=== PATIENT | male | born 1940 | race Caucasian/White ===

== ENCOUNTER 2018-02-21 08:19 | Emergency (ER) | payer MEDICARE ==
--- NOTE | 2018-02-21 09:48 | CT ---
CT HEAD: Indication: Post-traumatic pain. FINDINGS: There is no evidence of acute intracranial hemorrhage, mass effect, midline shift or ventriculomegaly . IMPRESSION: No acute intracranial abnormality. POS: [facility]
--- NOTE | 2018-02-21 09:51 | CT ---
CT CERVICAL SPINE WITHOUT CONTRAST: History: Trauma. Fall. Comparison: None. FINDINGS: The occipital condyles are intact. The odontoid process is intact. Severe facet arthrosis throughout the cervical spine from C2 through C5. There is no acute fracture or malalignment. Multilevel focal b ridging anterior osteophytes. The mastoids are clear. Multifocal hypodensities are present at both lo bes of the thyroid. Paraspinal musculature is symmetric. No cervical adenopathy. IMPRESSION: No acute fracture or malalignment of the cervical spine. POS: [facility]
== END 2018-02-21 10:20 | disposition home or self-care (01) ==
LOC: ERS 08:19
DX: T14.8XXA Other injury of unspecified body region, initial encounter (principal); E03.9 Hypothyroidism, unspecified; E78.5 Hyperlipidemia, unspecified; I10 Essential (primary) hypertension; G30.9 Alzheimer's disease, unspecified; F02.80 Dementia in other diseases classified elsewhere, unspecified severity, without behavioral disturbance, psychotic disturbance, mood disturbance, and anxiety; G20 Parkinson's disease; F32.9 Major depressive disorder, single episode, unspecified; Z79.899 Other long term (current) drug therapy; Z79.82 Long term (current) use of aspirin; W19.XXXA Unspecified fall, initial encounter
CPT/HCPCS: 70450; 72125

== ENCOUNTER 2018-02-23 03:25 | Emergency (ER) | payer MEDICARE ==
[2018-02-23] MEDS ORDERED: Adacel (T-DAP) 0.5 ML SYRINGE ONE (04:12)
[2018-02-23] MEDS ORDERED: Lidocaine 1% (PF) 30 ML VIAL ONE (04:12)
--- NOTE | 2018-02-23 08:27 | CT ---
PRELIMINARY REPORT/[facility]/EMERGENTY AFTER-HOURS PROCEDURE CT Cervical Spine Without Contrast EXAM DATE/TIME: 02/23/2018 3:47 AM CLINICAL HISTORY: 78 years old, male; Injury; Fall; Initial encounter; Blunt trauma without LOC; Forehead laceration; p resents to ED via EMS from [facility] due to head laceration S/P rolling out of bed around 02:30 . a&o x1 at baseline. Ca told ems they saw PT walk out of his room with bld dripping from his head lac. PT denies head, neck, or back pain TECHNIQUE: Axial computed tomography images of the cervical spine without intravenous contrast. COMPARISON: No relevant prior studies available. FINDINGS: Vertebrae: No acute fracture. No subluxation. Discs/Spinal canal/Neural foramina: Multilevel cervical degenerative / spondylitic changes with multi level neural foraminal narrowing. Soft tissues: Unremarkable. Lungs: Lung apices are normal. IMPRESSION: No acute fracture or subluxation. Thank you for allowing us to participate in the care of your patient. Dictated and Authenticated by: Mikey Johnson MD 02/23/2018 4:32 AM Central Time ([place] & [place]) FINAL REPORT EMERGENT AFTER HOURS CT CERVICAL SPINE WITHOUT CONTRAST: FINDINGS/IMPRESSION: I agree with the findings and impression given in the preliminary report per [facility] physician. There are degenerative changes of the cervical spine without acute osseous abnormality. POS: [facility]
--- NOTE | 2018-02-23 08:28 | CT ---
PRELIMINARY REPORT/[facility]/EMERGENTY AFTER-HOURS PROCEDURE CT Head Without Contrast EXAM DATE/TIME: 02/23/2018 3:47 AM CLINICAL HISTORY: 78 years old, male; Injury; Fall; Initial encounter; Blunt trauma without LOC; Forehead laceration; p resents to ED via EMS from [facility] due to head laceration S/P rolling out of bed around 02:30 . a&o x1 at baseline. Nh told ems they saw PT walk out of his room with bld dripping from his head lac. PT denies head, neck, or back pain TECHNIQUE: Axial computed tomography images of the head/brain without contrast. COMPARISON: No relevant prior studies available. FINDINGS: Brain: A few scattered small areas of decreased density in the periventricular white matter which are likely secondary to chronic ischemia from microvascular change. Diffuse cerebral atrophy. No mass ef fect or midline shift. No extra-axial fluid collection. Ventricles: Ventricular prominence in this patient with diffuse cerebral atrophy. Bones/joints: No fracture. Sinuses: Partial ethmoid sinusitis. Mastoid air cells: No mastoiditis. Soft tissues: Left frontal scalp soft tissue swelling. IMPRESSION: 1. No fracture. 2. Left frontal scalp soft tissue swelling. 3. No acute intracranial findings. 4. Diffuse cerebral atrophy and age-related periventricular white matter changes. Thank you for allowing us to participate in the care of your patient. Dictated and Authenticated by: Mikey Johnson MD 02/23/2018 4:27 AM Central Time ([place] & [place]) FINAL REPORT EMERGENT AFTER HOURS CT OF THE BRAIN WITHOUT CONTRAST: FINDINGS/IMPRESSION: I agree with the findings and impression given in the preliminary report per [facility] physician. No lili dence of acute intracranial abnormality. POS: [facility]
== END 2018-02-23 06:20 | disposition home or self-care (01) ==
LOC: ERS 03:25
DX: S01.81XA Laceration without foreign body of other part of head, initial encounter (principal); E03.9 Hypothyroidism, unspecified; E78.5 Hyperlipidemia, unspecified; I10 Essential (primary) hypertension; G30.9 Alzheimer's disease, unspecified; F02.80 Dementia in other diseases classified elsewhere, unspecified severity, without behavioral disturbance, psychotic disturbance, mood disturbance, and anxiety; G20 Parkinson's disease; F32.9 Major depressive disorder, single episode, unspecified; Z79.899 Other long term (current) drug therapy; Z79.82 Long term (current) use of aspirin; W06.XXXA Fall from bed, initial encounter
CPT/HCPCS: 12013; 70450; 72125; 90471; 90715; J2001

== ENCOUNTER 2018-03-03 06:01 | Emergency (ER) | payer MEDICARE ==
[2018-03-03] MEDS ORDERED: Oxymetazoline HCl 0.05% ( 15 ML ) ONE (06:11)
[2018-03-03 06:35] LABS: #Eosinphils 0.2 thou/uL (0.0-0.7); #Monocytes 0.4 thou/uL (0.11-0.59); #Neutrophils 3.6 thou/uL (1.40-6.50); %Basophils 0.2 % (0.0-1.0); %Eosinophils 2.9 % (0.0-10.0); %Monocytes 8.5 % (0.0-10.0); %Neutrophils 68.5 % (42.0-75.0); Hemoglobin 11.6 g/dL (14.0-18.0); Mean Corpuscular HGB CONC 31.9 g/dL (32.0-36.0); Mean Corpuscular Hemoglobin 27.5 pg (27.0-31.0); Mean Corpuscular Volume 86.2 fL (78.0-98.0); Mean Platelet Volume 7.2 fL (7.4-10.4); Platelet Count 328 thou/uL (130-400); RBC Distribution Width 14.2 % (11.5-14.5); Red Blood Cell (RBC) Count 4.21 mill/uL (4.70-6.10); White Blood Cell (WBC) Count 5.2 thou/uL (4.8-10.8)
[2018-03-03 06:37] LABS: INR-International Normal Ratio 1.2; PTT 34.6 SEC (22.9-36.1); Prothrombin Time 14.9 SEC (12.0-14.7)
[2018-03-03 06:54] LABS: ALT (SGPT) 10 U/L (8-55); AST (SGOT) 18 U/L (5-34); Albumin 3.2 g/dL (3.4-4.8); Alkaline Phosphatase 117 U/L (40-150); Anion Gap 12 mmol/L (10-20); BUN (Urea Nitrogen) 12 mg/dL (8.4-25.7); Bilirubin, Total 0.6 mg/dL (0.2-1.2); Calc. Creatinine Clearance 0 mL/min (70-130); Calcium 8.5 mg/dL (7.8-10.44); Carbon Dioxide 26 mmol/L (23-31); Chloride 107 mmol/L (98-107); Estimated GFR-MDRD Greater than 90; Globulin 3.3 g/dL (2.4-3.5); Glucose 97 mg/dL (83-110); Potassium 3.8 mmol/L (3.5-5.1); Protein, Total 6.5 g/dL (5.8-8.1); Sodium 141 mmol/L (136-145)
== END 2018-03-03 08:01 | disposition home or self-care (01) ==
LOC: ERS 06:01
DX: R04.0 Epistaxis (principal); E03.9 Hypothyroidism, unspecified; E78.5 Hyperlipidemia, unspecified; I10 Essential (primary) hypertension; G30.9 Alzheimer's disease, unspecified; F02.80 Dementia in other diseases classified elsewhere, unspecified severity, without behavioral disturbance, psychotic disturbance, mood disturbance, and anxiety; G20 Parkinson's disease; F32.9 Major depressive disorder, single episode, unspecified; Z79.899 Other long term (current) drug therapy; Z79.82 Long term (current) use of aspirin
CPT/HCPCS: 36415; 80053; 85025; 85610; 85730; 99284

== ENCOUNTER 2018-03-29 16:10 | Emergency (ER) | payer MEDICARE ==
--- NOTE | 2018-03-29 18:43 | CT ---
CT OF BRAIN PERFORMED WITHOUT CONTRAST ENHANCEMENT: 03/29/18 HISTORY: Head injury status post fall. COMPARISON: 02/23/18 study. Some generalized ventricular and sulcal prominence. There is no signs of intracerebral hemorrhage or extra-axial fluid collections. The mastoid air cells and visualized sinuses are clear. IMPRESSION: No acute intracranial abnormalities. POS: [facility]
== END 2018-03-29 18:05 ==
LOC: ERS 16:10
DX: S30.811A Abrasion of abdominal wall, initial encounter (principal); E03.9 Hypothyroidism, unspecified; E78.5 Hyperlipidemia, unspecified; I10 Essential (primary) hypertension; G30.9 Alzheimer's disease, unspecified; F02.80 Dementia in other diseases classified elsewhere, unspecified severity, without behavioral disturbance, psychotic disturbance, mood disturbance, and anxiety; G20 Parkinson's disease; I48.91 Unspecified atrial fibrillation; G47.30 Sleep apnea, unspecified; F32.9 Major depressive disorder, single episode, unspecified; Z79.899 Other long term (current) drug therapy; Z79.82 Long term (current) use of aspirin; W19.XXXA Unspecified fall, initial encounter
CPT/HCPCS: 70450

== ENCOUNTER 2018-03-31 17:31 | Emergency (ER) | payer MEDICARE ==
--- NOTE | 2018-03-31 18:19 | RAD ---
PORTABLE CHEST: 03/31/18 at 6:02 p.m. HISTORY: Fall. Chest pain. FINDINGS: The heart size is normal. The aorta is tortuous. The lungs are expanded without lobar consolidation, pneumothoraces, or pleural effusions. IMPRESSION: No acute process. POS: [facility]
[2018-03-31 18:34] LABS: #Eosinphils 0.1 thou/uL (0.0-0.7); #Lymphocytes 1.2 thou/uL (1.20-3.40); #Monocytes 0.7 thou/uL (0.11-0.59); #Neutrophils 4.2 thou/uL (1.40-6.50); %Basophils 0.1 % (0.0-1.0); %Eosinophils 2.4 % (0.0-10.0); %Lymphocytes 19.6 % (21.0-51.0); %Monocytes 10.6 % (0.0-10.0); %Neutrophils 67.3 % (42.0-75.0); Hemoglobin 12.5 g/dL (14.0-18.0); Mean Corpuscular HGB CONC 31.4 g/dL (32.0-36.0); Mean Corpuscular Hemoglobin 27.9 pg (27.0-31.0); Mean Platelet Volume 7.5 fL (7.4-10.4); Platelet Count 310 thou/uL (130-400); RBC Distribution Width 15.3 % (11.5-14.5); Red Blood Cell (RBC) Count 4.49 mill/uL (4.70-6.10); White Blood Cell (WBC) Count 6.2 thou/uL (4.8-10.8)
[2018-03-31 20:24] LABS: ALT (SGPT) 7 U/L (8-55); AST (SGOT) 21 U/L (5-34); Albumin 3.5 g/dL (3.4-4.8); Alkaline Phosphatase 128 U/L (40-150); Anion Gap 15 mmol/L (10-20); BUN (Urea Nitrogen) 12 mg/dL (8.4-25.7); Bilirubin, Total 0.5 mg/dL (0.2-1.2); Calc. Creatinine Clearance 0 mL/min (70-130); Calcium 8.8 mg/dL (7.8-10.44); Carbon Dioxide 23 mmol/L (23-31); Chloride 106 mmol/L (98-107); Estimated GFR-MDRD 80; Globulin 3.4 g/dL (2.4-3.5); Glucose 80 mg/dL (83-110); Magnesium 2.1 mg/dL (1.6-2.6); Potassium 3.9 mmol/L (3.5-5.1); Protein, Total 6.9 g/dL (5.8-8.1); Sodium 140 mmol/L (136-145)
--- NOTE | 2018-03-31 20:31 | CT ---
CT BRAIN WITHOUT CONTRAST 03/31/18 HISTORY: Multiple unwitnessed falls, dementia. FINDINGS: Comparison is made with exam of 03/31/18. No evidence of infarct, hemorrhage, midline shift or abnormal extra-axial fluid collections are seen. The ventricular size is appropriate and the basilar cisterns are patent. The bony calvarium is intac t. The visualized paranasal sinuses and mastoid air cells are well aerated. IMPRESSION: No CT evidence of acute intracranial process. POS: [facility]
[2018-03-31 21:06] LABS: Bilirubin Small (Negative); Blood, Urine Negative (Negative); Clarity CLEAR (Clear); Glucose, Urine (Dipstick) Negative (Negative); Leukocyte Small (Negative); Nitrite Negative (Negative); Protein, Urine (Dipstick) 30 mg/dL (Neg-Trace); Specific Gravity, Urine 1.028 (1.002-1.036)
[2018-03-31 21:08] LABS: Bacteria/HPF None Seen HPF (None Seen); Hyaline Casts/LPF 0-3 HYALINE CAST LPF (0-3 Hyaline); Pathc Cast-AUWi Flag 0.14 (0-2.49); RBC/HPF 0-3 HPF (0-3); Squamous Epithelial None Seen HPF (0-3); WBC/HPF None Seen HPF (0-3)
== END 2018-03-31 22:01 | disposition home or self-care (01) ==
LOC: ERS 17:31
DX: Z04.3 Encounter for examination and observation following other accident (principal); F32.9 Major depressive disorder, single episode, unspecified; E03.9 Hypothyroidism, unspecified; E78.5 Hyperlipidemia, unspecified; I10 Essential (primary) hypertension; G30.9 Alzheimer's disease, unspecified; F02.80 Dementia in other diseases classified elsewhere, unspecified severity, without behavioral disturbance, psychotic disturbance, mood disturbance, and anxiety; G20 Parkinson's disease; I48.91 Unspecified atrial fibrillation
CPT/HCPCS: 36415; 51701; 70450; 71045; 80053; 81003; 81015; 83735; 84443; 84484; 85025; 93005

== ENCOUNTER 2018-04-24 11:18 | Emergency (ER) | payer MEDICARE ==
[2018-04-24 12:25] LABS: #Eosinphils 0.1 thou/uL (0.0-0.7); #Lymphocytes 1.4 thou/uL (1.20-3.40); #Monocytes 0.4 thou/uL (0.11-0.59); #Neutrophils 3.2 thou/uL (1.40-6.50); %Basophils 0.1 % (0.0-1.0); %Eosinophils 1.4 % (0.0-10.0); %Lymphocytes 27.7 % (21.0-51.0); %Monocytes 7.3 % (0.0-10.0); %Neutrophils 63.6 % (42.0-75.0); Hemoglobin 12.2 g/dL (14.0-18.0); Mean Corpuscular HGB CONC 30.4 g/dL (32.0-36.0); Mean Corpuscular Hemoglobin 26.9 pg (27.0-31.0); Mean Corpuscular Volume 88.6 fL (78.0-98.0); Mean Platelet Volume 7.4 fL (7.4-10.4); Platelet Count 321 thou/uL (130-400); RBC Distribution Width 14.9 % (11.5-14.5); Red Blood Cell (RBC) Count 4.54 mill/uL (4.70-6.10); White Blood Cell (WBC) Count 5.1 thou/uL (4.8-10.8)
[2018-04-24 13:00] LABS: ALT (SGPT) Less than 7 U/L (8-55); AST (SGOT) 17 U/L (5-34); Acetaminophen Less than 6.0 mcg/mL (10.0-30.0); Albumin 3.6 g/dL (3.4-4.8); Alcohol Less than 10 mg/dL (Less than 10); Alkaline Phosphatase 118 U/L (40-150); Anion Gap 11 mmol/L (10-20); BUN (Urea Nitrogen) 15 mg/dL (8.4-25.7); Bilirubin, Total 0.4 mg/dL (0.2-1.2); Calc. Creatinine Clearance 0 mL/min (70-130); Calcium 9.1 mg/dL (7.8-10.44); Carbon Dioxide 27 mmol/L (23-31); Chloride 105 mmol/L (98-107); Estimated GFR-MDRD 82; Globulin 2.9 g/dL (2.4-3.5); Glucose 95 mg/dL (83-110); Potassium 3.8 mmol/L (3.5-5.1); Protein, Total 6.5 g/dL (5.8-8.1); Salicylate Less than 8.0 mg/dL (15.0-30.0); Sodium 139 mmol/L (136-145)
--- NOTE | 2018-04-24 14:06 | RAD ---
CHEST 1 VIEW: DATE: 04/24/18 Indication: History of Parkinson's disease and altered mental status. FINDINGS: There is scattered mild scarring within the lungs. There is moderate cardiomegaly. No confluent air s pace opacity or pleural effusion is noted. Examination is not appreciably changed from the comparison dated 03/31/18. IMPRESSION: No acute abnormality. POS: [facility]
--- NOTE | 2018-04-24 14:17 | CT ---
CT BRAIN WITHOUT CONTRAST: Date: 04/24/18 HISTORY: Delusional activity, Parkinson's disease. Altered mental status. FINDINGS: Comparison made with exam of 03/31/18. No evidence of infarct, hemorrhage, midline shift, or abnormal extra-axial fluid collections are seen . The ventricular size is appropriate and the basilar cisterns are patent. The bony calvarium is inta ct. The visualized paranasal sinuses and mastoid air cells are well aerated. IMPRESSION: No CT evidence of acute intracranial process. POS: [facility]
[2018-04-24 15:37] LABS: Bilirubin Negative (Negative); Blood, Urine Negative (Negative); Clarity CLEAR (Clear); Glucose, Urine (Dipstick) Negative (Negative); Leukocyte Negative (Negative); Nitrite Negative (Negative); Protein, Urine (Dipstick) Trace mg/dL (Neg-Trace); Specific Gravity, Urine 1.023 (1.002-1.036)
[2018-04-24 15:38] LABS: Amphetamine Not Detected (NotDetected); Barbiturates Screen Not Detected (NotDetected); Benzodiazepine Screen Detected (NotDetected); Cocaine Metabolite Screen Not Detected (NotDetected); Medtox Control Line Valid? VALID (VALID); Medtox Reader # READER 4; Methadone Not Detected (NotDetected); Methamphetamine Not Detected (NotDetected); Opiate Screen Not Detected (NotDetected); Oxycodone Screen Not Detected (NotDetected); Phencyclidine (PCP) Not Detected (NotDetected); THC/Cannabinoid Screen Not Detected (NotDetected); Tricyclic Screen Not Detected (NotDetected)
--- NOTE | 2018-04-29 17:13 | EKG ---
Test Reason : AMS Blood Pressure : / mmHG Vent. Rate : 073 BPM Atrial Rate : 073 BPM P-R Int : 148 ms QRS Dur : 110 ms QT Int : 404 ms P-R-T Axes : 038 009 231 degrees QTc Int : 445 ms Normal sinus rhythm Nonspecific ST and T wave abnormality Abnormal ECG Confirmed by MAN WEBB, DAISY ([id number]), supervising editor news reel RAN MOELLER ([id number]) on 04/29/2018 5:12:47 PM Referred By: MAN Confirmed By:DAISY CONWAY MD
== END 2018-04-24 15:38 | disposition home or self-care (01) ==
LOC: ERS 11:18
DX: G20 Parkinson's disease (principal); F02.80 Dementia in other diseases classified elsewhere, unspecified severity, without behavioral disturbance, psychotic disturbance, mood disturbance, and anxiety; R41.0 Disorientation, unspecified; E03.9 Hypothyroidism, unspecified; E78.5 Hyperlipidemia, unspecified; I10 Essential (primary) hypertension; I48.91 Unspecified atrial fibrillation; G47.30 Sleep apnea, unspecified; F32.9 Major depressive disorder, single episode, unspecified; Z79.899 Other long term (current) drug therapy; Z79.82 Long term (current) use of aspirin
CPT/HCPCS: 36415; 70450; 71045; 80053; 80306; 80307; 81003; 82140; 84484; 85025; 93005

== ENCOUNTER 2018-04-26 15:26 | Emergency (ER) | payer MEDICARE | END 2018-04-26 18:31 | LOC: ERS 15:26 | DX: G31.83 Neurocognitive disorder with Lewy bodies (principal); F02.80 Dementia in other diseases classified elsewhere, unspecified severity, without behavioral disturbance, psychotic disturbance, mood disturbance, and anxiety; E03.9 Hypothyroidism, unspecified; E78.5 Hyperlipidemia, unspecified; I10 Essential (primary) hypertension; I48.91 Unspecified atrial fibrillation; G47.30 Sleep apnea, unspecified; F32.9 Major depressive disorder, single episode, unspecified; Z79.891 Long term (current) use of opiate analgesic; Z79.899 Other long term (current) drug therapy; Z79.82 Long term (current) use of aspirin | CPT/HCPCS: 99284 ==

== ENCOUNTER 2018-04-28 18:09 | Emergency (ER) | payer MEDICARE ==
--- NOTE | 2018-04-28 18:53 | CT ---
CT BRAIN 04/28/18 Trauma with fall. Noncontrast enhanced CT images of the brain obtained. The brain is unremarkable. No evidence of intracranial masses, hemorrhages, strokes, or contusions se en. Ventricles are of normal size. The calvarium is unremarkable. IMPRESSION: Normal CT brain. POS: [facility]
--- NOTE | 2018-04-28 19:03 | CT ---
CT CERVICAL SPINE 04/28/18 HISTORY: Fall with head trauma. The patient is denying pain. Axial images are obtained with coronal and sagittal reconstructions. CT images demonstrate multilevel changes of spondylosis involving the facets of C3-4, C4-5 and C5-6. There is also facet degenerative changes seen in the left C7-T1. No evidence of acute cervical spine fracture seen. No evidence of compression fractures seen. The odo ntoid is unremarkable. Bilateral distal common and proximal ICA carotid calcification seen. There is also some heterogeneity noted in the upper pole of the right thyroid lobe. IMPRESSION: Multilevel changes of spondylosis. No evidence of acute cervical spine lesion. POS: [facility]
== END 2018-04-28 20:10 ==
LOC: ERS 18:09
DX: S05.12XA Contusion of eyeball and orbital tissues, left eye, initial encounter (principal); E03.9 Hypothyroidism, unspecified; E78.5 Hyperlipidemia, unspecified; I10 Essential (primary) hypertension; G30.9 Alzheimer's disease, unspecified; F02.80 Dementia in other diseases classified elsewhere, unspecified severity, without behavioral disturbance, psychotic disturbance, mood disturbance, and anxiety; G20 Parkinson's disease; I48.91 Unspecified atrial fibrillation; G47.30 Sleep apnea, unspecified; F32.9 Major depressive disorder, single episode, unspecified; Z79.899 Other long term (current) drug therapy; Z79.82 Long term (current) use of aspirin; W19.XXXA Unspecified fall, initial encounter
CPT/HCPCS: 70450; 72125

== ENCOUNTER 2018-05-25 17:08 | Emergency (ER) | payer MEDICARE ==
--- NOTE | 2018-05-25 19:16 | CT ---
CT BRAIN WITHOUT CONTRAST: 05/25/18 HISTORY: Fall, head trauma, FINDINGS: Comparison is made with exam of 04/28/18. No evidence of infarct, hemorrhage, midline shift or abnormal extra-axial fluid collections are seen. The ventricular size is stable and the basilar cisterns patent. The bony calvarium is intact. The vi sualized paranasal sinuses and mastoid air cells are well aerated. IMPRESSION: No CT evidence of acute intracranial process. POS: [facility]
--- NOTE | 2018-05-25 19:30 | CT ---
CT CERVICAL SPINE WITH CORONAL AND SAGITTAL REFORMATIONS 05/25/18 HISTORY: Fall. FINDINGS/IMPRESSION: Multilevel degenerative changes are present in the cervical spine. On one single reformatted sagitta l image (image 33, series 802), there is a lucency involving the posterosuperior aspect of the C7 karyn tebral body which could represent a fracture. No significant retropulsion is however seen. There is minimal anterolisthesis of C5 over C6 vertebral bodies. No facet malalignment is identified. Discussed over the telephone with ER physician, Dr. Beverley Bains at 7:07 p.m. POS: [facility]
--- NOTE | 2018-05-25 19:38 | RAD ---
AP PELVIS: 05/25/18 HISTORY: Fall. FINDINGS/IMPRESSION: There are degenerative changes in the lower lumbar spine and the hip joints. No acute fracture or dis location is identified. POS: [facility]
--- NOTE | 2018-05-25 19:38 | RAD ---
RIGHT HIP TWO VIEWS: 05/25/18 HISTORY: Fall. Right hip pain. FINDINGS/IMPRESSION: Degenerative changes are present. No acute fracture or dislocation is identified. POS: [facility]
[2018-05-25] MEDS ORDERED: Lidocaine 1% w/Epinephrine 1:100K 20 ML VIAL ONE (20:28)
--- NOTE | 2018-05-27 15:40 | EKG ---
Test Reason : ER INDICATION Blood Pressure : / mmHG Vent. Rate : 074 BPM Atrial Rate : 074 BPM P-R Int : 134 ms QRS Dur : 102 ms QT Int : 456 ms P-R-T Axes : 050 011 020 degrees QTc Int : 506 ms Sinus rhythm with occasional Premature ventricular complexes Nonspecific ST and T wave abnormality Abnormal ECG Confirmed by KHADIJAH BANSAL ([id number]), editorial project manager RAN MOELLER ([id number]) on 05/27/2018 3:40:18 PM Referred By: DOMENIC Confirmed By:KHADIJAH BANSAL
== END 2018-05-25 21:02 | disposition home or self-care (01) ==
LOC: ERS 17:08
DX: S01.81XA Laceration without foreign body of other part of head, initial encounter (principal); S51.812A Laceration without foreign body of left forearm, initial encounter; E03.9 Hypothyroidism, unspecified; E78.5 Hyperlipidemia, unspecified; I10 Essential (primary) hypertension; G30.9 Alzheimer's disease, unspecified; F02.80 Dementia in other diseases classified elsewhere, unspecified severity, without behavioral disturbance, psychotic disturbance, mood disturbance, and anxiety; G20 Parkinson's disease; I48.91 Unspecified atrial fibrillation; G47.30 Sleep apnea, unspecified; Z85.820 Personal history of malignant melanoma of skin; Z85.46 Personal history of malignant neoplasm of prostate; Z79.82 Long term (current) use of aspirin; Z79.899 Other long term (current) drug therapy; W01.0XXA Fall on same level from slipping, tripping and stumbling without subsequent striking against object, initial encounter; Y92.129 Unspecified place in nursing home as the place of occurrence of the external cause
CPT/HCPCS: 12011; 70450; 72125; 72170; 93005; J2001

== ENCOUNTER 2018-05-26 07:04 | Observation (INO) | payer MEDICARE ==
--- NOTE | 2018-05-26 07:44 | CT ---
EXAM: Brain CT scan Without contrast: HISTORY: Injury, found down, hypotensive COMPARISON: 05/25/2018 FINDINGS: Very small stable left basal ganglia lacunar infarct. Atrophy and chronic white matter ischemic change. No focal mass or midline shift. No intra or extra-axial hemorrhage. IMPRESSION: No mass or bleed or other significant acute process.
--- NOTE | 2018-05-26 08:03 | RAD ---
CHEST 1 VIEW: HISTORY: Unresponsive patient. Status post fall. COMPARISON: 04/24/2018. FINDINGS: Enlarged cardiac silhouette. The pulmonary vessels are within normal limits. Costophrenic angles ar e clear. No masses or consolidation. No pneumothorax or osseous abnormalities. IMPRESSION: Cardiomegaly, without evidence of congestive heart failure. POS: [facility]
[2018-05-26 08:09] LABS: #Eosinphils 0.1 thou/uL (0.0-0.7); #Lymphocytes 1.1 thou/uL (1.20-3.40); #Monocytes 0.6 thou/uL (0.11-0.59); #Neutrophils 3.8 thou/uL (1.40-6.50); %Basophils 0.4 % (0.0-1.0); %Eosinophils 1.3 % (0.0-10.0); %Lymphocytes 19.7 % (21.0-51.0); %Monocytes 10.8 % (0.0-10.0); %Neutrophils 67.8 % (42.0-75.0); Hemoglobin 11.3 g/dL (14.0-18.0); Mean Corpuscular HGB CONC 32.7 g/dL (32.0-36.0); Mean Corpuscular Hemoglobin 28.1 pg (27.0-31.0); Mean Corpuscular Volume 85.9 fL (78.0-98.0); Mean Platelet Volume 7.2 fL (7.4-10.4); Platelet Count 348 thou/uL (130-400); RBC Distribution Width 14.9 % (11.5-14.5); Red Blood Cell (RBC) Count 4.02 mill/uL (4.70-6.10); White Blood Cell (WBC) Count 5.5 thou/uL (4.8-10.8)
[2018-05-26 08:27] LABS: Bilirubin Small (Negative); Blood, Urine Negative (Negative); Clarity CLEAR (Clear); Glucose, Urine (Dipstick) Negative (Negative); Leukocyte Negative (Negative); Nitrite Negative (Negative); Protein, Urine (Dipstick) Negative (Neg-Trace); Specific Gravity, Urine 1.026 (1.002-1.036); pH, Urine 5.5 (5.0-9.0)
[2018-05-26 08:36] LABS: ALT (SGPT) 16 U/L (8-55); AST (SGOT) 15 U/L (5-34); Albumin 3.1 g/dL (3.4-4.8); Alkaline Phosphatase 89 U/L (40-150); Anion Gap 12 mmol/L (10-20); BUN (Urea Nitrogen) 18 mg/dL (8.4-25.7); Bilirubin, Total 0.6 mg/dL (0.2-1.2); CK (CPK) 117 U/L (30-200); Calc. Creatinine Clearance 0 mL/min (70-130); Calcium 8.4 mg/dL (7.8-10.44); Carbon Dioxide 23 mmol/L (23-31); Chloride 108 mmol/L (98-107); Estimated GFR-MDRD Greater than 90; Globulin 3.1 g/dL (2.4-3.5); Glucose 89 mg/dL (83-110); Potassium 3.7 mmol/L (3.5-5.1); Protein, Total 6.2 g/dL (5.8-8.1); Sodium 139 mmol/L (136-145)
[2018-05-26 08:54] LABS: CKMB 2.8 ng/mL (0-6.6)
[2018-05-26 11:41] LABS: Troponin I 0.042 ng/mL (< 0.028)
[2018-05-26 14:23] LABS: Troponin I 0.038 ng/mL (< 0.028)
[2018-05-26] MEDS: rOPINIRole HCl 0.25 MG TAB PO SCH ×2 (18:25→21:14)
[2018-05-26] MEDS: Carbidopa/Levodopa 25-100 mg Tablet PO SCH ×2 (19:03→21:11)
[2018-05-26 19:20] VITALS: BMI 28.5
[2018-05-26] MEDS ORDERED: risperiDONE 1 MG TAB PO SCH (21:00)
[2018-05-26] MEDS: Atorvastatin Calcium 20 MG TAB PO SCH (21:11)
[2018-05-26] MEDS: Docusate 100 MG CAP PO SCH (21:11)
[2018-05-26] MEDS: Enoxaparin Sodium 40 MG/0.4 ML SYRINGE SC SCH (21:11)
[2018-05-26] MEDS: Benztropine 1 MG TAB PO SCH (21:11)
[2018-05-26] MEDS: risperiDONE 0.25 MG TAB PO SCH (21:12)
--- NOTE | 2018-05-27 00:59 | HP ---
CHIEF COMPLAINT: [facility] HISTORY OF PRESENT ILLNESS: Mr. Sheikh is a 78-year-old male with past medical history significant for advanced Parkinson disease along with Parkinson's dementia, who is a resident of [facility]. He also has a past medical history significant for mitral valve replacement in November 2017, and known PVCs. He is followed by his Letter Of Credit Document Examiner, Dr. Sabillon, who is in [place]. The patient has been suffering from frequent falls at his facility. Day before yesterday, he was admitted to the ER after he slid out of his chair, and suffered a head laceration. This was sutured in the emergency room and his other workup was negative, and he was discharged back to his facility. This morning, around 6:30, [facility] staff found the patient down on the ground between his bed and the wall. EMS was called. The patient's blood pressure was noted to be 80/40 at that time. Per record review, on his way to the hospital in the ambulance, the patient became unresponsive, and bigeminal PVCs were noted on the strip, the patient was given lidocaine en route. On arrival to the emergency department, his vital signs were all stable and normal, blood pressure was noted to be 121/83, pulse is 82, respirations are 23 and his O2 saturation is 100% on room air. Information for this HPI is taken largely from records and from the patient's son, who I spoke to at length with on the phone. The patient's Parkinson disease has been progressively worsening over the last several months. In fact, he was hospitalized at [facility] in [place] for psychoses and combative behavior. He was recently released back to his residence at [facility] earlier in the week. The patient on my interview does answer some questions appropriately. He has moments of lucency with nursing staff. He is resting comfortably at the time of my interview. Regarding the patient's cardiac history and prior workup, as mentioned, he follows with a Letter Of Credit Document Examiner in [place]. In November 2017, he had a left heart catheterization, which per the patient's son did reveal some coronary artery disease; however, no stent or bypass was performed at that time. He did have successful bioprosthetic mitral valve replacement at that time. He does have a known history of PVCs on medical therapy with amiodarone. The PVCs have been largely asymptomatic. On arrival to the ER, workup has included a brain CT, which showed a very small stable left basal ganglia lacunar infarct, atrophy and chronic white matter ischemic change and no focal mass or midline shift. No mass, or bleed, or other significant acute process. His chest x-ray showed cardiomegaly without evidence of CHF. LABORATORY DATA: His lab work is largely unremarkable. He does have a mild microcytic anemia. His hemoglobin is 11.3, his hematocrit is 34.5, he has no white count and his UA was negative. His lactic acid is also negative. All liver enzymes were in the normal range. He did have an indeterminate troponin at 0.066. REVIEW OF SYSTEMS: A 12-point review of systems performed and is negative except that stated above. The patient does not complain of any chest pain or shortness of breath. He denies any other pain. It is somewhat difficult to achieve a full review of systems. PAST MEDICAL HISTORY: 1. Status post bioprosthetic mitral valve repair in November 2017. 2. Coronary artery disease, not requiring intervention. 3. Advanced Parkinson disease and Parkinson's dementia. 4. Gastrointestinal AV malformation, history of transfusion in 2017. 5. Hyperlipidemia. 6. Hypertension. 7. Known PVCs. 8. Prostate cancer. 9. Melanoma. SURGICAL HISTORY: Mitral valve repair, appendectomy, prostatectomy, skin cancer removal. SOCIAL HISTORY: The patient does not use any alcohol. He is a nonsmoker. As mentioned, he lives in [facility]. His son, Elliott Sweeney is the medical power of assistant county attorney. Lengthy discussion was had today, and the patient's code status is do not resuscitate. ALLERGIES: NO KNOWN DRUG ALLERGIES. FAMILY HISTORY: Noncontributory. MEDICATIONS: 1. Amiodarone 100 mg tablet, 1 tablet daily. 2. Aspirin 81 mg tablet, 1 tablet daily. 3. Atorvastatin 20 mg tablet, 1 tablet at bedtime. 4. Benztropine 1 mg tablet at bedtime. 5. Carbidopa/levodopa 25/100, take 2 tablets by mouth 4 times daily. 6. Carvedilol 6.25 mg tablet, 1 tablet b.i.d. 7. Furosemide 20 mg tablet, 1 tablet every day. 8. Levothyroxine 25 mcg tablet 1 tablet daily. 9. Losartan 25 mg tablet, one tablet daily,. 10. [place]-3 fish oil caps 1000 mg 1 tablet daily. 11. Multivitamin 1 tablet daily. 12. Potassium chloride 20 mEq tablet, 1 tablet daily. 13. Risperidone tablet 1 mg daily and 1/2 tablet in the morning. 14. Ropinirole 0.25 mg every 8 hours. 15. Sertraline 50 mg tablet 1 tablet daily. 16. Acetaminophen 500 mg q.4 hours p.r.n. PHYSICAL EXAMINATION: VITAL SIGNS: Blood pressure 121/83, pulse 82, respirations 23, temperature 98.4, and O2 saturation 100% on room air. GENERAL: The patient is an elderly male lying in an ER bed. He is lethargic and sleepy, but arousable and does answer some questions appropriately. HEAD: Sutured laceration present on right side of his forehead into the hairline. Otherwise, he has no other evidence of trauma. His mucous membranes are moist. NECK: No appreciable JVD. No carotid bruits. No lymphadenopathy. Trachea is midline. CV: S1 and S2. Regular rate and rhythm. No appreciable murmurs, rubs, or gallops. LUNGS: Somewhat poor inspiratory effort, but his lungs are overall clear with good vesicular breath sounds. ABDOMEN: Positive bowel sounds. Soft, nontender. EXTREMITIES: No edema. +2 DP pulses bilaterally. SKIN: Warm and dry. NEUROLOGIC: The patient has a somewhat pronounced pill-rolling resting tremor. IMAGING: As outlined above in the HPI. LABORATORY DATA: White blood cell count 5.5, hemoglobin 11.3, hematocrit 34.5, platelet count is 348. Sodium is 139, potassium 3.7, chloride 108, anion gap is 12, BUN 18, creatinine 0.82, GFR greater than 90, glucose 89. Lactic acid 1.1. All LFTs within normal limits. CK-MB 2.8, troponin 0.066, albumin 3.1, TSH 3.39. UA is negative aside from a small amount of bilirubin. ASSESSMENT: 1. Frequent falls, which I suspect is likely secondary to worsening Parkinson disease and orthostatic hypotension secondary to autonomic dysautonomia from his disease. 2. Advanced Parkinson disease and Parkinson's dementia with recent psychoses and combativeness resulting in Behavioral [facility] hospitalization. 3. Indeterminate troponin. 4. Premature ventricular contractions, with known history, currently on amiodarone. 5. Status post bioprosthetic mitral valve repair, November 2017. 6. Coronary artery disease, apparently nonocclusive, not requiring stent or bypass surgery. PLAN: Given the patient's frequent falls and hypotension, per EMS' arrival along with indeterminate troponin, we will admit for observation. We will obtain orthostatics as well as consult PT and OT. We will obtain echo and continue serial cardiac enzymes. We will also continue telemetry monitoring. If the patient is significantly orthostatic, he may benefit from medication such as midodrine or Florinef, or possibly Northera. I have had a lengthy conversation with his son, who does say that his father's general physical condition as well as his memory, Alzheimer's and psychoses have all continued to decline recently. We will follow fall precautions while he is here. Further recommendations based on hospital course. Care discussed with Dr. Kuhn, who agrees with the above. Job ID: [id number]
[2018-05-27] MEDS ORDERED: ALPRAZolam 0.25 MG TAB PO SCH (01:45)
[2018-05-27] MEDS: Levothyroxine Sodium 25 MCG TAB PO SCH (05:51)
[2018-05-27] MEDS: rOPINIRole HCl 0.25 MG TAB PO SCH ×3 (05:52→21:15)
[2018-05-27 06:05] LABS: #Eosinphils 0.2 thou/uL (0.0-0.7); #Lymphocytes 1.2 thou/uL (1.20-3.40); #Monocytes 0.6 thou/uL (0.11-0.59); #Neutrophils 4.2 thou/uL (1.40-6.50); %Basophils 0.4 % (0.0-1.0); %Lymphocytes 18.9 % (21.0-51.0); %Monocytes 10.3 % (0.0-10.0); %Neutrophils 67.5 % (42.0-75.0); Hemoglobin 11.7 g/dL (14.0-18.0); Mean Corpuscular HGB CONC 32.1 g/dL (32.0-36.0); Mean Corpuscular Hemoglobin 28.3 pg (27.0-31.0); Mean Corpuscular Volume 88.1 fL (78.0-98.0); Mean Platelet Volume 7.4 fL (7.4-10.4); Platelet Count 347 thou/uL (130-400); RBC Distribution Width 14.9 % (11.5-14.5); Red Blood Cell (RBC) Count 4.15 mill/uL (4.70-6.10); White Blood Cell (WBC) Count 6.2 thou/uL (4.8-10.8)
[2018-05-27 06:29] LABS: Anion Gap 12 mmol/L (10-20); BUN (Urea Nitrogen) 14 mg/dL (8.4-25.7); Calc. Creatinine Clearance 106 mL/min (70-130); Calcium 8.6 mg/dL (7.8-10.44); Carbon Dioxide 24 mmol/L (23-31); Chloride 105 mmol/L (98-107); Estimated GFR-MDRD Greater than 90; Glucose 68 mg/dL (83-110); Potassium 3.6 mmol/L (3.5-5.1); Sodium 137 mmol/L (136-145)
[2018-05-27] MEDS: Carbidopa/Levodopa 25-100 mg Tablet PO SCH ×4 (08:45→19:39)
[2018-05-27] MEDS: Multivit, Therapeutic 1 TAB PO SCH (08:45)
[2018-05-27] MEDS: Aspirin 81 mg Enteric Coated Tablet PO SCH (08:45)
[2018-05-27] MEDS: Furosemide 20 MG TAB PO SCH (08:45)
[2018-05-27] MEDS: risperiDONE 0.25 MG TAB PO SCH (08:45)
[2018-05-27] MEDS: Amiodarone 200 MG TAB PO SCH (08:46)
[2018-05-27] MEDS: Docusate 100 MG CAP PO SCH ×2 (08:46→19:39)
[2018-05-27] MEDS: Carvedilol 6.25 MG TAB PO SCH (08:46)
[2018-05-27] MEDS: Fish Oil 1,000 MG CAP PO SCH (08:46)
[2018-05-27] MEDS: Losartan 25 MG TAB PO SCH (08:46)
[2018-05-27] MEDS ORDERED: Miconazole 2% Cream 30 GM TUBE TOP SCH (09:00)
[2018-05-27] MEDS ORDERED: Prevnar 13-Val Conj/PF 0.5 ML SYRINGE IM ONE (09:00)
--- NOTE | 2018-05-27 18:48 | PRG ---
DATE OF SERVICE: 05/27/2018 SUBJECTIVE: Mr. Sheikh is a 78-year-old male with past medical history significant for advanced Parkinson disease along with Parkinson's dementia, who is a resident of [facility], who has been admitted to the hospital after suffering frequent falls at his [place] [facility]. The patient was admitted yesterday after being found on the floor at [place], EMS was called, and blood pressure at that time was noted to be 80/40. He was brought to our facility for further workup and treatment. Vital signs have been very stable since his admission with blood pressures systolic 130s and 140s. He did become agitated overnight and did have Xanax. This morning, popeye Francis was called as the patient was very somnolent and not easily arousable. His vital signs; blood pressure 120/80, pulse 70, respirations 18, O2 saturation 98% on room air. Glucose was 85 at that time. Earlier this morning, the patient did speak to me. He said that his son had visited him, and that he had eaten his breakfast. No complaints of pain at this time. PHYSICAL EXAMINATION: VITAL SIGNS: Blood pressure 133/74, respirations 22, pulse 72, temperature 97.9, O2 saturation is 97% on room air. GENERAL: The patient is an elderly male, lying in bed. He is somnolent, but does answer some questions appropriately. HEENT: Head, sutured laceration present on the right side of his forehead into the hairline. Otherwise, no evidence of trauma. Mucous membranes are moist. NECK: No appreciable JVD. No carotid bruits. No lymphadenopathy. Trachea is midline. CV: S1 and S2. Regular rate, rhythm. No appreciable murmurs. LUNGS: Overall clear with good vesicular breath sounds, regular respiratory rate and pattern. ABDOMEN: Positive bowel sounds. Soft, nontender. EXTREMITIES: No edema. SKIN: Warm and dry. NEUROLOGIC: The patient has a resting pill-rolling tremor. LABORATORY DATA: White blood cell count 6.2, hemoglobin 11.7, hematocrit 36.5, platelets 347. Sodium 137, potassium 3.6, chloride 105, carbon dioxide 24, BUN 14, creatinine 0.71, glucose 83. Troponin 0.066, 0.042, and 0.038. ASSESSMENT: 1. Somnolence secondary to polypharmacy and benzodiazepine use. 2. Advanced Parkinson's dementia with known episodes of psychosis. 3. Parkinson disease. 4. Admission for frequent falls, which I suspect is secondary to worsening Parkinson's and orthostatic hypotension secondary to autonomic dysautonomia. 5. Status post bioprosthetic mitral valve repair on November 2017, with some evidence of mitral stenosis per echocardiogram today, with preserved EF. 6. Coronary artery disease, apparently nonocclusive, not requiring stent or bypass. PLAN: Care discussed with Dr. Kuhn after the code [place] today. We will stop all benzodiazepines along with his risperidone. The patient will need to be assessed carefully by PT regarding his fall risk and whether return to [facility] unit is plausible. I did talk to his son yesterday, and the patient is a DNR. Palliative care consult might be appropriate at this time. At this point, the patient shows no sign of infection, and his vital signs have been quite stable. Further recommendations based on his hospital course. Job ID: [id number]
[2018-05-27] MEDS: Atorvastatin Calcium 20 MG TAB PO SCH (19:39)
[2018-05-27] MEDS: Acetaminophen 500 MG TAB PO PRN (19:39)
[2018-05-27] MEDS: Benztropine 1 MG TAB PO SCH (19:39)
[2018-05-27] MEDS: Enoxaparin Sodium 40 MG/0.4 ML SYRINGE SC SCH (19:39)
[2018-05-28] MEDS: Levothyroxine Sodium 25 MCG TAB PO SCH (05:56)
[2018-05-28] MEDS: rOPINIRole HCl 0.25 MG TAB PO SCH ×2 (05:57→14:07)
[2018-05-28] MEDS: Acetaminophen 500 MG TAB PO PRN (05:57)
[2018-05-28] MEDS: Amiodarone 200 MG TAB PO SCH (08:57)
[2018-05-28] MEDS: Losartan 25 MG TAB PO SCH (08:57)
[2018-05-28] MEDS: Aspirin 81 mg Enteric Coated Tablet PO SCH (08:58)
[2018-05-28] MEDS: Carbidopa/Levodopa 25-100 mg Tablet PO SCH ×2 (08:58→14:07)
[2018-05-28] MEDS: Furosemide 20 MG TAB PO SCH (08:58)
[2018-05-28] MEDS: Fish Oil 1,000 MG CAP PO SCH (08:58)
[2018-05-28] MEDS: Multivit, Therapeutic 1 TAB PO SCH (08:58)
[2018-05-28] MEDS: Carvedilol 6.25 MG TAB PO SCH (08:58)
[2018-05-28] MEDS ORDERED: Clotrimazole 1 % Cream 30 GM TUBE TOP SCH (09:00)
[2018-05-28] MEDS: Docusate 100 MG CAP PO SCH (14:07)
[2018-05-28 15:20] VITALS: BP 152/84; TEMP 97.8
--- NOTE | 2018-05-29 02:36 | DIS ---
DATE OF ADMISSION: 05/26/2018 DATE OF DISCHARGE: 05/28/2018 ALLERGIES: NO KNOWN DRUG ALLERGIES. CHIEF COMPLAINT: Status post fall at halfway. FINAL DIAGNOSES: 1. Frequent falls, secondary to worsening Parkinson's Parkinson disease as well as associated worsening autonomic dysfunction/orthostatic hypotension from his disease. 2. Advanced Parkinson's disease and Parkinson's dementia. 3. Indeterminate troponin, likely secondary to transient hypotension, preserved ejection fraction on echocardiogram. 4. Paroxysmal ventricular contractions, with known history, currently on amiodarone. 5. Status post bioprosthetic mitral valve repair in November 2017. 6. Coronary artery disease, not requiring stent or bypass surgery, preserved ejection fraction. PROCEDURES PERFORMED: None. LABORATORY DATA: White blood cell count 6.2, hemoglobin 11.7, hematocrit 36.5, platelets are 347. Sodium 137, potassium 3.6, chloride 105, carbon dioxide 24, anion gap 12, creatinine 0.71, GFR greater than 90, glucose is 83. Troponin was 0.066, 0.042 and 0.038 respectively. UA was negative. IMAGING RESULTS: Brain CT showed very small stable left basal ganglia lacunar infarct, atrophy and chronic white matter ischemic change, no mass or bleed or other significant acute process. Chest x-ray, cardiomegaly without evidence of congestive heart failure. Echocardiogram normal left ventricular systolic function estimated at 50% to 55%, status post MVR with possible MV stenosis. Structurally normal aortic valve, mildly dilated left atrium. CONSULTATIONS: None. VITAL SIGNS: Blood pressure 152/84, temperature 97.8, 98% on room air, pulse is 65. HOSPITAL COURSE: Mr. Sheikh is a 78-year-old male with past medical history significant for advanced Parkinson's disease along with Parkinson's dementia, who is a resident at [facility]. He has a past medical history significant for mitral valve replacement in November 2017 and known PVCs. 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 The patient has been suffering from frequent falls at his halfway. The day prior to his admission, he was admitted to the ER after he slid out of his chair and suffered a head laceration. This was sutured in the emergency Room and his other workup was negative and he was discharged back to his facility. The morning of his admission around 6:30 a.m., halfway staff found the patient on the ground between his bed and the wall. EMS was called. The patient's blood pressure was noted to be 80/40 at that time. Bigeminal PVCs were noted on EMS and the patient was given lidocaine en route to the hospital. On arrival to the ER, his vital signs were all stable and normal, with blood pressure noted to be 121/83, pulse 82, respirations 23, and O2 saturation 100% on room air. His Parkinson's disease seemed to be progressively worsening over the last several months. He has been hospitalized at [facility] in [place] for psychosis and behavior, and was returned back to his residence at [facility] just earlier in the week. Over the course of his hospitalization, his workup has been largely negative. He has no infectious etiology for his falls. He has no fever or white count. His UA was clean. He did have some pronounced somnolence after a dose of Xanax that was given when the patient was restless overnight. At that time, his Xanax and risperidone were stopped. On the morning of discharge, the patient is having some lucency, and is alert and oriented x2. He did eat his breakfast. He has no complaints of pain or shortness of breath. I have discussed the case with Dr. Rose and at this time, it is appropriate for him to be discharged back to his facility, given no acute issues at this time. PHYSICAL EXAMINATION: GENERAL: The patient is an elderly male, resting in bed. He is alert and oriented x2. HEAD: Suture laceration present on right side of his forehead into the hairline, otherwise no evidence of trauma. His mucous membranes are moist. NECK: No appreciable JVD. No carotid bruits. No lymphadenopathy. Trachea is midline. CV: S1 and S2. Regular rate and rhythm. No appreciable murmurs, rubs, or gallops. LUNGS: Regular respiratory rate and pattern, overall clear to auscultation. ABDOMEN: Positive bowel sounds. Soft, nontender. EXTREMITIES: No edema, +2 DP pulses bilateral. SKIN: Warm and dry. NEUROLOGIC: The patient has a somewhat pronounced pill-rolling resting tremor. CONDITION AT DISCHARGE: Stable. DISCHARGE MEDICATIONS: He will continue his home medications, which include. 1. Amiodarone 100 mg one tablet daily. 2. Aspirin 81 mg one tablet daily. 3. Atorvastatin 20 mg one tab at bedtime. 4. Benztropine 1 mg tab at bedtime. 5. Carbidopa levodopa 25/100, two tablets by mouth 4 times daily. 6. Carvedilol 6.25 mg one tab b.i.d. 7. Furosemide 20 mg tablet one tablet daily. 8. Levothyroxine 25 mcg tablet one tablet daily. 9. Losartan 25 mg tablet one tablet daily. 10. [place]-3 fish oil 1000 mg one tablet daily. 11. Multivitamin one tablet daily. 12. Potassium chloride 20 mEq tab one tablet daily. 13. Risperidone 1 mg daily and half tab in the morning. 14. Ropinirole 0.25 mg q.8 hours. 15. Sertraline 50 mg tablet one tablet daily. 16. Acetaminophen 500 mg q.4 hours p.r.n. 17. No changes were made to the patient's home medication regimen. DISCHARGE DISPOSITION: [facility]. PLAN: As mentioned, the patient's medical workup has been negative here. There is no infectious etiology for his falls. His blood work is largely unremarkable. His vital signs have remained stable. I had a lengthy conversation with the patient's son today reviewing the findings. I suspect that his falls are a result of worsening Parkinson's disease. I have spoken with [facility], and the patient's son has arranged for a 24-hour sitter for his father to avoid further falls, which will probably be necessary given the progressive nature of his disease. All parties understand the plan. Plan of care has been discussed also with Dr. Rose who agrees with the above. Job ID: [id number]
== END 2018-05-28 19:20 ==
LOC: ERS 07:04 → ERHOLD 09:45 → 2NO 17:50
PROVIDERS: ADMIT Internal Medicine; ATTEND Internal Medicine
DX: G20 Parkinson's disease (principal); F02.80 Dementia in other diseases classified elsewhere, unspecified severity, without behavioral disturbance, psychotic disturbance, mood disturbance, and anxiety; R29.6 Repeated falls; I95.1 Orthostatic hypotension; I49.3 Ventricular premature depolarization; I25.10 Atherosclerotic heart disease of native coronary artery without angina pectoris; S01.81XD Laceration without foreign body of other part of head, subsequent encounter; Z66 Do not resuscitate; Z79.82 Long term (current) use of aspirin; Z79.899 Other long term (current) drug therapy; Z95.2 Presence of prosthetic heart valve; W07.XXXD Fall from chair, subsequent encounter
CPT/HCPCS: 51702; 70450; 71045; 80048; 81003; 82550; 82553; 82962 ×2; 83605; 84484 ×2; 85025; 93005; 93306; 96372 ×2; 99285; G0378 ×3; 36415; 36416; 80053; 84443; J1650

== ENCOUNTER 2018-07-10 18:41 | Emergency (ER) | payer MEDICARE ==
[2018-07-10] MEDS ORDERED: Adacel (T-DAP) 0.5 ML SYRINGE ONE (20:11)
== END 2018-07-10 20:27 | disposition home or self-care (01) ==
LOC: ERS 18:41
DX: S01.312A Laceration without foreign body of left ear, initial encounter (principal); E03.9 Hypothyroidism, unspecified; I48.91 Unspecified atrial fibrillation; G47.30 Sleep apnea, unspecified; F03.90 Unspecified dementia, unspecified severity, without behavioral disturbance, psychotic disturbance, mood disturbance, and anxiety; F32.9 Major depressive disorder, single episode, unspecified; E78.5 Hyperlipidemia, unspecified
CPT/HCPCS: 12011; 90471; 90715